=== PATIENT | female | born 1965 | race Asian ===

== ENCOUNTER 2018-04-28 06:05 | Day surgery (SDC) | payer OTHER ==
[~2018-04-28] VITALS: Ht 160 cm; Wt 81.3 kg
[~2018-04-28 06:05] MED LIST: MONT10T PO
--- NOTE | 2018-04-28 06:31 | NUR ---
04/28/18 0631 Klaus Marley CALL LIGHT WITHIN REACH.
[2018-04-28] MEDS ORDERED: PRED20 PO (06:55)
--- NOTE | 2018-04-28 09:36 | NUR ---
04/28/18 0936 Mirza Garcia REMOVED FACE TENT AT 0934 AND PATIENT IS 97% ON RA
--- NOTE | 2018-04-28 10:05 | NUR ---
04/28/18 1005 Mirza Garcia S PATIENT SITTING UP IN RECLINER DRINKING JUICE AND VITITING WITH DAUGHTER AND FRIEND. DENIES N/V AT THIS TIME. PATIENT STATES PAIN IS 5/10 AT INCISION LINE. MEDICATED FOR PAIN. WILL CONTINUE TO MONITOR.
== END 2018-04-28 12:15 | disposition home or self-care (01) ==
LOC: ORSCSDS 06:05
PROVIDERS: Otolaryngology
PROC: 0GTK0ZZ Resection of Thyroid Gland, Open Approach (ICD-10-PCS; principal; 2018-04-28 07:30)
PROC: 0GBJ0ZZ Excision of Thyroid Gland Isthmus, Open Approach (ICD-10-PCS; principal; 2018-04-28 07:30)
DX: C73 Malignant neoplasm of thyroid gland (principal); Z79.899 Other long term (current) drug therapy; Z79.52 Long term (current) use of systemic steroids; E66.9 Obesity, unspecified; Z68.33 Body mass index [BMI] 33.0-33.9, adult
CPT/HCPCS: 88307; J1100; J2250; J2405; J2710; J3010; J7120

== ENCOUNTER → 2019-01-23 | Outpatient (CLI) | payer OTHER ==
[~2019-01-23] MED LIST changes: +PRED20 PO
[2019-01-23 15:30] LABS: Stool Occult Bld Immuno 1 Negative (NEGATIVE)
== END | disposition home or self-care (01) ==
LOC: LAB SHORT 06:45 → LAB 06:45 → LAB FUT 11-17 08:05
PROVIDERS: Family Medicine
DX: Z12.11 Encounter for screening for malignant neoplasm of colon (principal); Z13.220 Encounter for screening for lipoid disorders; R73.9 Hyperglycemia, unspecified
CPT/HCPCS: G0328

== ENCOUNTER → 2022-03-06 | Outpatient (CLI) | payer OTHER ==
[2022-03-06 21:12] LABS: Adenovirus Not Detected (NOT DETECT); Bordetella pertussis Not Detected (NOT DETECT); Chlamydophila pneumoniae Not Detected (NOT DETECT); Coronavirus 229E Not Detected (NOT DETECT); Coronavirus HKU1 Not Detected (NOT DETECT); Coronavirus NL63 Not Detected (NOT DETECT); Coronavirus OC43 Not Detected (NOT DETECT); Human Metapneumovirus Not Detected (NOT DETECT); Human Rhinovirus/Enterovirus Detected (NOT DETECT); Influenza A/2009-H1 Not Detected (NOT DETECT); Influenza A/H1 Not Detected (NOT DETECT); Influenza A/H3 Not Detected (NOT DETECT); Influenza B Not Detected (NOT DETECT); Mycoplasma pneumoniae Not Detected (NOT DETECT); Parainfluenza Virus 1 Not Detected (NOT DETECT); Parainfluenza Virus 2 Not Detected (NOT DETECT); Parainfluenza Virus 3 Not Detected (NOT DETECT); Parainfluenza Virus 4 Not Detected (NOT DETECT); Respiratory Syncytial Virus Not Detected (NOT DETECT); SARS-Cov-2 (COVID-19), BioFire Not Detected (NOT DETECT)
== END | disposition home or self-care (01) ==
LOC: LAB SHORT 14:15
PROVIDERS: Physician Assistant
DX: R50.9 Fever, unspecified (principal); R05.9 Cough, unspecified
CPT/HCPCS: 0202U

== ENCOUNTER → 2022-05-28 | Outpatient (CLI) | payer OTHER ==
[2022-05-28 11:43] LABS: Stool Occult Bld Immuno 1 Negative (NEGATIVE)
== END | disposition home or self-care (01) ==
LOC: LAB SHORT 07:45 → LAB 07:45 → LAB FUT 05-04 06:20
PROVIDERS: Family Medicine
DX: Z12.11 Encounter for screening for malignant neoplasm of colon (principal); E11.69 Type 2 diabetes mellitus with other specified complication; E78.5 Hyperlipidemia, unspecified
CPT/HCPCS: G0328

== ENCOUNTER → 2022-05-29 | Outpatient (CLI) | payer OTHER ==
[2022-05-29 19:51] LABS: Creatinine, Urine Random 34.3 mg/dL (27.00-270.00); Microalb/Creat Ratio UR, Rand 21.399 mg/g (0.000-30.000); Microalbumin, Random Urine 7.34 mg/L (0.000-20.000)
== END | disposition home or self-care (01) ==
LOC: LAB SHORT 15:42
PROVIDERS: Family Medicine
DX: E11.9 Type 2 diabetes mellitus without complications (principal)
CPT/HCPCS: 82043; 82570